=== PATIENT | female | born 1975 | race Caucasian/White ===

== ENCOUNTER 2017-02-07 12:06 | Emergency (ER) | payer SELFPAY ==
[~2017-02-07] VITALS: Ht 157.5 cm; Wt 76.0 kg
[2017-02-07 12:09] VITALS: BP 136/86; PULSE 78; RESP 16; O2SAT 98
--- NOTE | 2017-02-07 12:25 | ED.REPORT ---
HPI-General Illness Date of Service Feb 07, 2017 ED Provider: Mark Molina MD Pt is a 42 year old female with a history of asthma who presents to the ED complaining of throat tightness onset 11:30 today. She c/o associated anxiety, nausea, and brief lightheadedness. She denies anaphylaxis and SOB, nor rash. The pt reports that she ate a pineapple smoothie 20 minutes prior to arrival and her symptoms were onset 10 minutes later. Per pt, she has experienced similar symptoms with pineapple previously, but this does not happen consistently. Her symptoms are not worsening, but have been persistent. No other complaints at this time, including no fever, chills, chest pain, abdominal pain, diarrhea, constipation, recent illnesses, or other complaints at this time. Nursing Notes Stated Complaint: DIZZY/POSS ALLERGIC REACTION Chief Complaint: Allergic Reaction Nursing Notes Reviewed: Yes Allergies: Coded Allergies: pineapple (Unverified Allergy, Unknown, 02/07/17) Uncoded Allergies: SEASONAL (Allergy, Mild, 02/07/17) Scheduled PRN Albuterol HFA (Proair HFA) 8.5 Gm Hfa.aer.ad 2 PUFFS INHALATION Q4H PRN PRN asthma Epinephrine (Epipen 2-Vijay) 0.3 Mg/0.3 Ml Auto.injct 0.3 MG IJ ONCE PRN PRN For Anaphyllaxis General Time Seen by MD: 12:11 Chief Complaint Other (Throat tightness) Hx Obtained From: Patient Arrived By: Walk-in Sudden in Onset?: Yes Onset Occurred: Just prior to arrival Symptom Duration: Since onset Severity: Current: No pain currently Severity: Maximum: No pain Recent Healthcare: No recent doctor visit, No recent hospitalization Similar Sx Previous: Yes Past Medical History Past Medical History Reports: Asthma Past Surgical History Knee x2 Sinus Endoscopy Reports: Hysterectomy Family History Reports: Diabetes mellitus Smoking History Unknown if Ever Smoker Social History Alcohol Use: Denies alcohol use Drug Use: Denies drug use Ambulatory Status Independent Review of Systems + Throat tightness sensation Full Review of Systems Respiratory: Denies: Shortness of breath GI: Reports: Nausea Allergy / Immune: Denies: Anaphylaxis Neurologic: Reports: Lightheaded Psychiatric: Reports: Anxiety Complete sys rev & neg: except as marked. Physical Exam Nursing note and vitals reviewed. Constitutional: Well-developed, well-nourished. Not diaphoretic. Head: Normocephalic and atraumatic. Mouth/Throat: Oropharynx is clear and moist. No oropharyngeal exudate. Eyes: EOM are normal. Pupils are equal, round, and reactive to light. Neck: Supple, no tracheal deviation. No stridor. Cardiovascular: Normal rate, regular rhythm. Equal and intact distal pulses throughout. Pulmonary/Chest: Effort normal and breath sounds normal. No wheezing. No respiratory distress. Abdominal: Soft. No distension. There is no tenderness, rebound, or guarding. Bowel sounds present. Musculoskeletal: Range of motion grossly intact, moving all extremities. No edema or tenderness appreciated. Neurological: AOx3. Grossly nonfocal exam. Strength and sensation intact and equal to bilateral upper and lower extremities. Skin: Warm and dry, no rashes or pallor appreciated. Psychiatric: Appropriate mood and affect. Behavior appears normal. Vital Signs Vital Signs Date Time Temp Pulse Resp B/P Pulse Ox O2 Delivery O2 Flow Rate FiO2 02/07/17 12:30 36.7 77 18 127/70 98 Room Air 02/07/17 12:09 36.6 78 16 136/86 98 Room Air Initial VS: Reviewed Re-Eval/Medical Decision Med Decision/Clinical Course In summary, 42-year-old female presenting to the ED for evaluation after an apparent allergic reaction earlier today. She is not having any acute issues at this time, however did notice some scratchiness and "tightening" in her throat earlier. This is not present at this time the patient does not have any stridor, nor wheezing. She has not had any shortness of breath or difficulty breathing at any point today. No rashes. I do not think that she needs epinephrine at this time, and is well-appearing. She does state that she feels somewhat anxious about her visit, but otherwise denies other complaints. She was observed in the ED and given an H2 lyndsey and steroids; she is currently driving and did not want Benadryl. I have advised her to avoid pineapple in the future, although it appears that her reaction was relatively minor at this time. She should follow up with her primary care doctor in the next 1-2 days for reevaluation. She has had a prescription for an EpiPen in the past, however this has ; I did write her for an additional EpiPen and told her not to use her one. Plan discharge home with very careful return precautions. Patient agreed with the plan as stated, no further questions. Source of Hx: Old records Time of Eval: 12:49 Re-Evaluation/Progress Note: Informed pt of plan for treatment and discharge. Pt understands and agrees with plan for treatment and discharge. Informed pt of plan for discharge. Pt understands and agrees with plan for discharge. F/U instructions and RTER warnings given. All questions addressed. Counseled Regarding: Diagnosis, Need for follow-up, When/why to return to ED Discharge & Departure Primary Impression: Allergy to pineapple Additional Impression: Allergic reaction Encounter type: initial encounter Qualified Code: T78.40XA - Allergy, unspecified, initial encounter Disposition: Home Discharge Condition All VS Reviewed: Yes Condition: Stable Patient Instructions: Epinephrine (By injection), Food Allergy (ED), General Allergic Reaction (ED) Additional Instructions: Thank you for allowing us to be a part of your care in the ED today. I'm reassured by your exam and history; the fact that you haven't had any difficulty breathing or a rash, along with your physical exam, makes me think that there's no reason to continue watching you in the ED today. However, if you develop any new or worsening shortness of breath, rash, or anything else of concern to you, return to the ED immediately - call 911. Avoid pineapples. Please schedule a follow up appointment with your primary care physician tomorrow for a recheck. Please return to the emergency department for any new or worsening symptoms including any nausea, vomiting, abdominal pain, shortness of breath, chest pain , one sided weakness/numbness, fevers, or chills, or if there's anything else of concern to you. Referrals: Partha Quezada MD (PCP) Neil Attestation Portions of this note were transcribed by Cornelia Perez. I, Dr. Molina personally performed the history, physical exam and medical decision-making; I reviewed and confirmed the accuracy of the information in the transcribed note. Signed by: Neil James, 02/07/17. copies to: Partha Quezada MD, William B MD Feb 07, 2017 12:25 Cornelia Aj Feb 07, 2017 12:36
[2017-02-07] MEDS ORDERED: ALBU8.5H2 INHALATION (12:28)
[2017-02-07 12:30] VITALS: BP 127/70; PULSE 77; RESP 18; O2SAT 98
[2017-02-07] MEDS ORDERED: EPIN0.3P2 IJ (13:15)
[2017-02-07 13:25] VITALS: BP 116/62; PULSE 76; RESP 16; O2SAT 98
[2017-02-07 13:31] VITALS: BP 116/62; PULSE 76; RESP 16; O2SAT 98
== END 2017-02-07 13:32 | disposition home or self-care (01) ==
LOC: SED 12:06
DX: R42 Dizziness and giddiness (principal); R07.0 Pain in throat; T78.1XXA Other adverse food reactions, not elsewhere classified, initial encounter; X58.XXXA Exposure to other specified factors, initial encounter; Y93.89 Activity, other specified; Y99.8 Other external cause status; Y92.9 Unspecified place or not applicable; J45.909 Unspecified asthma, uncomplicated; Z91.018 Allergy to other foods